=== PATIENT | male | born 2000 | race Hispanic/Latino ===

== ENCOUNTER 2020-11-07 19:08 | Emergency (ER) | payer OTHER ==
[~2020-11-07] VITALS: Ht 167.6 cm; Wt 79.5 kg
[2020-11-08] MEDS ORDERED: BACITRACIN OINTMENT 30GM TUBE TOP STA (00:18)
[2020-11-08] MEDS ORDERED: CEPHALEXIN 500 MG CAP PO ONE (00:20)
[2020-11-08] MEDS ORDERED: BACI500O21 TOP (00:25)
[2020-11-08] MEDS ORDERED: CEPH500C PO (00:25)
[2020-11-08 00:46] VITALS: BP 117/67
== END 2020-11-08 00:48 | disposition home or self-care (01) ==
LOC: M ED 19:08
DX: S80.811A Abrasion, right lower leg, initial encounter (principal); X58.XXXA Exposure to other specified factors, initial encounter; Y92.830 Public park as the place of occurrence of the external cause; Y93.89 Activity, other specified; Y99.9 Unspecified external cause status